=== PATIENT | female | born 1995 | race Caucasian/White ===

== ENCOUNTER 2016-10-11 11:07 | Emergency (ER) | payer OTHER ==
[~2016-10-11] VITALS: Ht 160 cm; Wt 54.4 kg
[~2016-10-11 11:07] MED LIST: BACTRIM DS 8001 TA1 PO; CEPHALEXIN500 M1 PO; COLACE1 SUP RC; CYCLOBENZAPRINE10 MG PO; FLAGYL500 MG PO; IMITREX100 MG PO; KENALOG 0.1%80 GM T; MACROBID100 M1 PO; MYCOLOG CREAM 115 GM T; NAPROSYN500 MG PO; NKHM PO; PEPCID20 MG PO; PYRIDIUM200 M1 PO; TESSALON PERLE200 MG PO; ZANTAC 150150 MG PO; ZITHROMAX Z PA250 MG PO; ZOFRAN ODT4 MG SL; ZOFRAN4 MG PO; Zofran4 MG PO
[2016-10-11 11:13] VITALS: BP 116/67
[2016-10-11 11:29] LABS: BASO % 0.3 % (0.0-1.0); EOS # 0.1 10*3/uL (0.0-0.4); HEMATOCRIT 40.5 % (37.0-47.0); HEMOGLOBIN 13.8 g/dl (12.0-16.0); LYMPH # 1.8 10*3/uL (1.3-4.4); LYMPH % 27.8 % (27.0-41.0); MEAN CELL VOLUME 88.2 fl (81.0-99.0); MEAN CORPUSCULAR HGB 30.1 pg (27.0-31.0); MEAN CORPUSCULAR HGB CONC 34.1 g/dl (33.0-37.0); MEAN PLATELET VOLUME 9.4 fl (9.6-12.3); MONO # 0.5 10*3/uL (0.1-1.0); MONO % 7.8 % (3.0-9.0); NEUT % 62.9 % (47.0-73.0); PLATELET COUNT AUTOMATED 221 10*3/uL (130-400); RED BLOOD COUNT 4.59 10*6/uL (4.10-5.10); RED CELL DISTRI WIDTH 11.9 % (0-14.5); WHITE BLOOD COUNT 6.3 10*3/uL (4.8-10.8)
[2016-10-11 11:39] LABS: BILIRUBIN 1+ (NEGATIVE); BLOOD 3+ (NEGATIVE); CLARITY SL CLOUDY (CLEAR); COLOR YELLOW (YELLOW); GLUCOSE NEGATIVE (NEGATIVE); KETONE 1+ (NEGATIVE); LEUKO ESTERASE NEGATIVE (NEGATIVE); NITRITE NEGATIVE (NEGATIVE); SPECIFIC GRAVITY 1.025 (1.005-1.030)
[2016-10-11 11:45] LABS: ALKALINE PHOSPHATASE 83 U/L (45-117); BUN 9 mg/dl (7-24); CHLORIDE 106 mmol/L (98-107); CREATININE 0.79 mg/dL (0.55-1.02); POTASSIUM 3.6 mmol/L (3.5-5.1); SGOT/AST 16 IU/L (3-35); SGPT/ALT 17 U/L (12-78); SODIUM 142 mmol/L (136-145); TOTAL PROTEIN 7.3 gm/dL (6.4-8.2)
[2016-10-11 11:53] LABS: BACTERIA 2+; EPITHELIAL CELLS 15-20; RBC 21-30 rbc/hpf (0-2)
== END 2016-10-11 12:16 | disposition home or self-care (01) ==
LOC: ED 11:07
PROVIDERS: Nurse Practitioner Family
DX: N93.8 Other specified abnormal uterine and vaginal bleeding (principal); G43.909 Migraine, unspecified, not intractable, without status migrainosus; F17.200 Nicotine dependence, unspecified, uncomplicated

== ENCOUNTER 2016-11-21 19:43 | Emergency (ER) | payer OTHER ==
[~2016-11-21] VITALS: Ht 167.6 cm; Wt 68.0 kg
[2016-11-21 19:48] VITALS: BP 105/58
[2016-11-21] MEDS ORDERED: ZITHROMAX250 MG PO (21:18)
[2016-11-21] MEDS ORDERED: ZYRTEC10 MG PO (21:18)
== END 2016-11-21 21:22 | disposition home or self-care (01) ==
LOC: ED 19:43
DX: J20.9 Acute bronchitis, unspecified (principal); J01.90 Acute sinusitis, unspecified; F17.210 Nicotine dependence, cigarettes, uncomplicated

== ENCOUNTER 2016-12-14 12:23 | Emergency (ER) | payer OTHER ==
[~2016-12-14] VITALS: Ht 160 cm; Wt 67.6 kg
[~2016-12-14 12:23] MED LIST changes: +ZITHROMAX250 MG PO; +ZYRTEC10 MG PO
[2016-12-14 12:27] VITALS: BP 108/60
[2016-12-14 12:58] LABS: BASO % 0.3 % (0.0-1.0); EOS # 0.1 10*3/uL (0.0-0.4); EOS % 0.4 % (1.0-4.0); HEMOGLOBIN 13.6 g/dl (12.0-16.0); LYMPH # 1.5 10*3/uL (1.3-4.4); MEAN CELL VOLUME 86.8 fl (81.0-99.0); MEAN CORPUSCULAR HGB 29.5 pg (27.0-31.0); MEAN PLATELET VOLUME 9.8 fl (9.6-12.3); MONO # 0.4 10*3/uL (0.1-1.0); MONO % 3.8 % (3.0-9.0); NEUT # 9.4 10*3/uL (2.3-7.9); NEUT % 82.2 % (47.0-73.0); PLATELET COUNT AUTOMATED 244 10*3/uL (130-400); RED BLOOD COUNT 4.61 10*6/uL (4.10-5.10); RED CELL DISTRI WIDTH 12.3 % (0-14.5); WHITE BLOOD COUNT 11.5 10*3/uL (4.8-10.8)
[2016-12-14 12:59] LABS: BILIRUBIN NEGATIVE (NEGATIVE); BLOOD NEGATIVE (NEGATIVE); CLARITY CLEAR (CLEAR); COLOR YELLOW (YELLOW); GLUCOSE NEGATIVE (NEGATIVE); KETONE NEGATIVE (NEGATIVE); LEUKO ESTERASE NEGATIVE (NEGATIVE); NITRITE NEGATIVE (NEGATIVE); PH 7.5 (5.0-9.0); SPECIFIC GRAVITY 1.015 (1.005-1.030); UROBILINOGEN 0.2 E.U./dl (0.2-1.0)
[2016-12-14 13:07] LABS: BACTERIA TRACE
[2016-12-14 13:14] LABS: ALBUMIN 3.9 gm/dl (3.1-4.5); ALKALINE PHOSPHATASE 85 U/L (45-117); BUN 8 mg/dl (7-24); CHLORIDE 106 mmol/L (98-107); CREATININE 0.79 mg/dL (0.55-1.02); LIPASE 220 U/L (73-393); POTASSIUM 3.5 mmol/L (3.5-5.1); SGOT/AST 23 IU/L (3-35); SGPT/ALT 27 U/L (12-78); SODIUM 141 mmol/L (136-145)
[2016-12-14 13:20] LABS: BETA-HCG, QUANT < 1.0 mIU/mL (1-3)
[2016-12-14] MEDS ORDERED: ZOFRAN ODT4 MG SL (15:21)
== END 2016-12-14 15:27 | disposition home or self-care (01) ==
LOC: ED 12:23
PROVIDERS: Emergency Medicine
DX: R11.2 Nausea with vomiting, unspecified (principal); F17.200 Nicotine dependence, unspecified, uncomplicated

== ENCOUNTER 2017-02-14 14:06 | Emergency (ER) | payer OTHER ==
[~2017-02-14] VITALS: Ht 160 cm; Wt 63.5 kg
[2017-02-14 14:14] VITALS: BP 114/68
[2017-02-14] MEDS ORDERED: CLARITIN10 MG PO (14:31)
[2017-02-14] MEDS ORDERED: PREDNISONE10 MG PO (14:31)
[2017-02-14] MEDS ORDERED: FLONASE ALLERG9.9 ML NAS (14:31)
[2017-02-14] MEDS ORDERED: ROBITUSSIN DM 105 ML PO (14:31)
== END 2017-02-14 15:04 | disposition home or self-care (01) ==
LOC: ED 14:06
DX: J20.9 Acute bronchitis, unspecified (principal); G43.909 Migraine, unspecified, not intractable, without status migrainosus; F17.200 Nicotine dependence, unspecified, uncomplicated

== ENCOUNTER 2017-02-18 12:45 | Emergency (ER) | payer OTHER ==
[~2017-02-18] VITALS: Wt 63.5 kg
[~2017-02-18 12:45] MED LIST changes: +CLARITIN10 MG PO; +FLONASE ALLERG9.9 ML NAS; +PREDNISONE10 MG PO; +ROBITUSSIN DM 105 ML PO
[2017-02-18 13:00] VITALS: BP 117/83
[2017-02-18 13:28] LABS: BASO % 0.3 % (0.0-1.0); EOS % 0.2 % (1.0-4.0); HEMATOCRIT 42.9 % (37.0-47.0); HEMOGLOBIN 14.3 g/dl (12.0-16.0); LYMPH # 2.4 10*3/uL (1.3-4.4); MEAN CELL VOLUME 87.9 fl (81.0-99.0); MEAN CORPUSCULAR HGB 29.3 pg (27.0-31.0); MEAN CORPUSCULAR HGB CONC 33.3 g/dl (33.0-37.0); MEAN PLATELET VOLUME 9.3 fl (9.6-12.3); MONO # 0.6 10*3/uL (0.1-1.0); MONO % 5.8 % (3.0-9.0); NEUT # 7.4 10*3/uL (2.3-7.9); NEUT % 70.4 % (47.0-73.0); PLATELET COUNT AUTOMATED 266 10*3/uL (130-400); RED BLOOD COUNT 4.88 10*6/uL (4.10-5.10); RED CELL DISTRI WIDTH 12.7 % (0-14.5); WHITE BLOOD COUNT 10.4 10*3/uL (4.8-10.8)
[2017-02-18 13:44] LABS: ALBUMIN 4.2 gm/dl (3.1-4.5); ALKALINE PHOSPHATASE 85 U/L (45-117); BUN 11 mg/dl (7-24); CHLORIDE 109 mmol/L (98-107); CREATININE 0.86 mg/dL (0.55-1.02); POTASSIUM 3.4 mmol/L (3.5-5.1); SGOT/AST 13 IU/L (3-35); SGPT/ALT 23 U/L (12-78); SODIUM 147 mmol/L (136-145); TOTAL PROTEIN 7.8 gm/dL (6.4-8.2)
== END 2017-02-18 14:52 | disposition home or self-care (01) ==
LOC: ED 12:45
PROVIDERS: Emergency Medicine
DX: G43.909 Migraine, unspecified, not intractable, without status migrainosus (principal); E87.6 Hypokalemia; E87.0 Hyperosmolality and hypernatremia; F17.200 Nicotine dependence, unspecified, uncomplicated; Z79.899 Other long term (current) drug therapy

== ENCOUNTER 2017-05-16 14:20 | Emergency (ER) | payer OTHER ==
[~2017-05-16] VITALS: Ht 167.6 cm; Wt 65.8 kg
[2017-05-16 14:23] VITALS: BP 111/58
[2017-05-16] MEDS ORDERED: CEPHALEXIN500 M1 PO (14:48)
[2017-05-16] MEDS ORDERED: CILOXAN 5 ML5 M1 OS (14:48)
== END 2017-05-16 15:15 | disposition home or self-care (01) ==
LOC: ED 14:20
DX: H10.502 Unspecified blepharoconjunctivitis, left eye (principal); L08.89 Other specified local infections of the skin and subcutaneous tissue; G43.909 Migraine, unspecified, not intractable, without status migrainosus

== ENCOUNTER 2017-07-15 12:59 | Emergency (ER) | payer OTHER ==
[~2017-07-15] VITALS: Ht 160 cm; Wt 63.5 kg
[2017-07-15 12:59] VITALS: BP 133/77
[~2017-07-15 12:59] MED LIST changes: +CILOXAN 5 ML5 M1 OS
[2017-07-15 13:30] LABS: BILIRUBIN NEGATIVE (NEGATIVE); BLOOD NEGATIVE (NEGATIVE); CLARITY CLOUDY (CLEAR); COLOR YELLOW (YELLOW); GLUCOSE NEGATIVE (NEGATIVE); KETONE NEGATIVE (NEGATIVE); LEUKO ESTERASE NEGATIVE (NEGATIVE); NITRITE NEGATIVE (NEGATIVE); PH 8.5 (5.0-9.0); SPECIFIC GRAVITY 1.015 (1.005-1.030); UROBILINOGEN 0.2 E.U./dl (0.2-1.0)
[2017-07-15 13:41] LABS: BACTERIA 2+; EPITHELIAL CELLS 30-40
[2017-07-15 13:53] LABS: BASO # 0.1 10*3/uL (0.0-0.1); BASO % 0.4 % (0.0-1.0); EOS # 0.1 10*3/uL (0.0-0.4); EOS % 0.3 % (1.0-4.0); HEMATOCRIT 44.1 % (37.0-47.0); HEMOGLOBIN 14.7 g/dl (12.0-16.0); LYMPH # 1.4 10*3/uL (1.3-4.4); LYMPH % 9.8 % (27.0-41.0); MEAN CELL VOLUME 89.5 fl (81.0-99.0); MEAN CORPUSCULAR HGB 29.8 pg (27.0-31.0); MEAN CORPUSCULAR HGB CONC 33.3 g/dl (33.0-37.0); MEAN PLATELET VOLUME 10.3 fl (9.6-12.3); MONO # 0.6 10*3/uL (0.1-1.0); MONO % 3.8 % (3.0-9.0); NEUT # 12.5 10*3/uL (2.3-7.9); NEUT % 85.4 % (47.0-73.0); PLATELET COUNT AUTOMATED 213 10*3/uL (130-400); RED BLOOD COUNT 4.93 10*6/uL (4.10-5.10); WHITE BLOOD COUNT 14.7 10*3/uL (4.8-10.8)
[2017-07-15 14:08] LABS: ALKALINE PHOSPHATASE 93 U/L (45-117); BUN 5 mg/dl (7-24); CHLORIDE 111 mmol/L (98-107); CREATININE 0.84 mg/dL (0.55-1.02); LIPASE 246 U/L (73-393); SGOT/AST 22 IU/L (3-35); SGPT/ALT 22 U/L (12-78); SODIUM 143 mmol/L (136-145); TOTAL PROTEIN 7.7 gm/dL (6.4-8.2)
[2017-07-15] MEDS ORDERED: ANAPROX DS550 MG PO (15:07)
[2017-07-15] MEDS ORDERED: ZOFRAN ODT4 MG SL (15:07)
== END 2017-07-15 15:12 | disposition home or self-care (01) ==
LOC: ED 12:59
PROVIDERS: Physician Assistant
DX: N83.201 Unspecified ovarian cyst, right side (principal); R11.2 Nausea with vomiting, unspecified; R19.7 Diarrhea, unspecified

== ENCOUNTER 2017-10-18 10:57 | Emergency (ER) | payer OTHER ==
[~2017-10-18] VITALS: Ht 160 cm; Wt 63.5 kg
[~2017-10-18 10:57] MED LIST changes: +ANAPROX DS550 MG PO; +Motrin,Rufen800 MG PO
[2017-10-18 10:58] VITALS: BP 116/83
[2017-10-18 11:23] LABS: BASO % 0.3 % (0.0-1.0); EOS % 0.2 % (1.0-4.0); HEMATOCRIT 40.6 % (37.0-47.0); HEMOGLOBIN 13.6 g/dl (12.0-16.0); LYMPH # 1.4 10*3/uL (1.3-4.4); LYMPH % 12.1 % (27.0-41.0); MEAN CELL VOLUME 88.3 fl (81.0-99.0); MEAN CORPUSCULAR HGB 29.6 pg (27.0-31.0); MEAN CORPUSCULAR HGB CONC 33.5 g/dl (33.0-37.0); MONO # 0.8 10*3/uL (0.1-1.0); MONO % 6.8 % (3.0-9.0); NEUT # 9.4 10*3/uL (2.3-7.9); NEUT % 80.2 % (47.0-73.0); PLATELET COUNT AUTOMATED 259 10*3/uL (130-400); RED CELL DISTRI WIDTH 12.2 % (0-14.5); WHITE BLOOD COUNT 11.7 10*3/uL (4.8-10.8)
[2017-10-18 11:39] LABS: ALBUMIN 3.7 gm/dl (3.1-4.5); ALKALINE PHOSPHATASE 73 U/L (45-117); BUN 8 mg/dl (7-24); CHLORIDE 111 mmol/L (98-107); CREATININE 0.77 mg/dL (0.55-1.02); LIPASE 125 U/L (73-393); POTASSIUM 3.6 mmol/L (3.5-5.1); SGOT/AST 17 IU/L (3-35); SGPT/ALT 36 U/L (12-78); SODIUM 144 mmol/L (136-145); TOTAL PROTEIN 7.2 gm/dL (6.4-8.2)
[2017-10-18 11:45] LABS: BILIRUBIN NEGATIVE (NEGATIVE); BLOOD 2+ (NEGATIVE); CLARITY SL CLOUDY (CLEAR); COLOR YELLOW (YELLOW); GLUCOSE NEGATIVE (NEGATIVE); KETONE NEGATIVE (NEGATIVE); LEUKO ESTERASE NEGATIVE (NEGATIVE); NITRITE NEGATIVE (NEGATIVE)
[2017-10-18 11:55] LABS: URINE AMPHETAMINES < 1000 (1000ng/ml); URINE BARBITURATES < 200 (200ng/ml); URINE BENZODIAZEPINES < 200 (200ng/ml); URINE CANNABINOIDS (THC) > 50 (50ng/ml); URINE COCAINE < 300 (300ng/ml); URINE METHADONE < 300 (300ng/ml); URINE OPIATES < 300 (300ng/ml)
[2017-10-18 11:57] LABS: URINE PHENCYCLIDINE < 25 (25ng/ml)
[2017-10-18 12:00] LABS: BACTERIA 1+; EPITHELIAL CELLS 31-40; MUCOUS 2+
== END 2017-10-18 13:15 | disposition home or self-care (01) ==
LOC: ED 10:57
PROVIDERS: Physician Assistant
DX: R11.2 Nausea with vomiting, unspecified (principal)

== ENCOUNTER 2017-11-07 21:22 | Emergency (ER) | payer OTHER ==
[~2017-11-07] VITALS: Ht 160 cm; Wt 59.0 kg
[2017-11-07 21:23] VITALS: BP 114/65
[2017-11-07] MEDS ORDERED: AUGMENTIN 875-875 MG PO (21:40)
== END 2017-11-07 21:51 ==
LOC: ED 21:22
DX: J32.0 Chronic maxillary sinusitis (principal); G43.909 Migraine, unspecified, not intractable, without status migrainosus; F17.200 Nicotine dependence, unspecified, uncomplicated

== ENCOUNTER 2019-12-07 13:37 | Emergency (ER) | payer SELFPAY ==
[~2019-12-07] VITALS: Ht 160 cm; Wt 68.0 kg
[~2019-12-07 13:37] MED LIST changes: +AUGMENTIN 875-875 MG PO
[2019-12-07 13:44] VITALS: BP 115/68
[2019-12-07 14:49] LABS: BASO # 0.1 10*3/uL (0.0-0.1); BASO % 0.4 % (0.0-1.0); HEMATOCRIT 43.4 % (37.0-47.0); LYMPH # 1.1 10*3/uL (1.3-4.4); LYMPH % 8.3 % (27.0-41.0); MEAN CELL VOLUME 86.6 fl (81.0-99.0); MEAN CORPUSCULAR HGB 28.9 pg (27.0-31.0); MEAN CORPUSCULAR HGB CONC 33.4 g/dl (33.0-37.0); MONO # 0.5 10*3/uL (0.1-1.0); MONO % 3.5 % (3.0-9.0); NEUT # 11.8 10*3/uL (2.3-7.9); NEUT % 87.6 % (47.0-73.0); PLATELET COUNT AUTOMATED 261 10*3/uL (130-400); RED BLOOD COUNT 5.01 10*6/uL (4.10-5.10); RED CELL DISTRI WIDTH 11.9 % (0-14.5); WHITE BLOOD COUNT 13.5 10*3/uL (4.8-10.8)
[2019-12-07 15:01] LABS: BILIRUBIN Negative (Negative); BLOOD Negative (Negative); CLARITY Clear (Clear); COLOR Yellow (Yellow); GLUCOSE Negative (Negative); KETONE 1+ (Negative); LEUKO ESTERASE Negative (Negative); NITRITE Negative (Negative); PH 6.5 (4.5-8.0); SPECIFIC GRAVITY 1.025 (1.001-1.030)
[2019-12-07 15:04] LABS: ALBUMIN 4.1 gm/dl (3.1-4.5); ALKALINE PHOSPHATASE 88 U/L (45-117); BUN 9 mg/dl (7-24); CHLORIDE 110 mmol/L (98-107); CREATININE 0.77 mg/dL (0.55-1.02); LIPASE 78 U/L (73-393); POTASSIUM 3.6 mmol/L (3.5-5.1); SGOT/AST 14 IU/L (3-35); SGPT/ALT 28 U/L (12-78); SODIUM 143 mmol/L (136-145); TOTAL PROTEIN 7.5 gm/dL (6.4-8.2)
[2019-12-07 15:12] LABS: BACTERIA 1+; EPITHELIAL CELLS 0-2; WBC 0-2 wbc/hpf (0-5)
[2019-12-07 15:13] LABS: MUCOUS 1+
[2019-12-07] MEDS ORDERED: SEPTDS PO (16:09)
[2019-12-07] MEDS ORDERED: ZOFRAN4 MG PO (16:09)
[2019-12-07] MEDS ORDERED: PYRIDIUM200 M1 PO (16:09)
== END 2019-12-07 16:16 | disposition home or self-care (01) ==
LOC: ED 13:37
PROVIDERS: Physician Assistant
DX: R11.2 Nausea with vomiting, unspecified (principal); R30.0 Dysuria; Z79.899 Other long term (current) drug therapy

== ENCOUNTER 2020-01-21 11:48 | Emergency (ER) | payer SELFPAY ==
[~2020-01-21] VITALS: Ht 160 cm; Wt 65.8 kg
[~2020-01-21 11:48] MED LIST changes: +SEPTDS PO
[2020-01-21 11:59] VITALS: BP 110/63
[2020-01-21 12:23] LABS: BASO % 0.3 % (0.0-1.0); EOS % 0.2 % (1.0-4.0); HEMATOCRIT 43.5 % (37.0-47.0); LYMPH # 1.6 10*3/uL (1.3-4.4); LYMPH % 11.8 % (27.0-41.0); MEAN CELL VOLUME 86.5 fl (81.0-99.0); MEAN CORPUSCULAR HGB 28.2 pg (27.0-31.0); MEAN CORPUSCULAR HGB CONC 32.6 g/dl (33.0-37.0); MEAN PLATELET VOLUME 9.7 fl (9.6-12.3); MONO # 0.8 10*3/uL (0.1-1.0); NEUT % 81.4 % (47.0-73.0); PLATELET COUNT AUTOMATED 273 10*3/uL (130-400); RED BLOOD COUNT 5.03 10*6/uL (4.10-5.10); RED CELL DISTRI WIDTH 12.4 % (0-14.5); WHITE BLOOD COUNT 13.5 10*3/uL (4.8-10.8)
[2020-01-21 12:38] LABS: ALKALINE PHOSPHATASE 85 U/L (45-117); BUN 7 mg/dl (7-24); CHLORIDE 111 mmol/L (98-107); CREATININE 0.78 mg/dL (0.55-1.02); LIPASE 68 U/L (73-393); POTASSIUM 3.3 mmol/L (3.5-5.1); SGOT/AST 18 IU/L (3-35); SGPT/ALT 31 U/L (12-78); SODIUM 145 mmol/L (136-145); TOTAL PROTEIN 7.4 gm/dL (6.4-8.2)
[2020-01-21 15:12] LABS: BILIRUBIN Negative (Negative); BLOOD Negative (Negative); CLARITY Clear (Clear); COLOR Yellow (Yellow); GLUCOSE Negative (Negative); KETONE Trace (Negative); LEUKO ESTERASE Negative (Negative); NITRITE Negative (Negative); UROBILINOGEN 0.2 E.U./dl (0.0-1.0)
[2020-01-21 15:21] LABS: PH 8.5 (4.5-8.0)
[2020-01-21 15:27] LABS: BACTERIA 2+; EPITHELIAL CELLS 31-40; RBC 0-2 rbc/hpf (0-2); WBC 0-2 wbc/hpf (0-5)
[2020-01-21] MEDS ORDERED: ZOFRAN4 MG PO (16:03)
== END 2020-01-21 16:40 | disposition home or self-care (01) ==
LOC: ED 11:48
PROVIDERS: Physician Assistant
DX: R11.2 Nausea with vomiting, unspecified (principal); E86.0 Dehydration; F41.9 Anxiety disorder, unspecified; Z20.828 Contact with and (suspected) exposure to other viral communicable diseases; Z79.899 Other long term (current) drug therapy; Z79.2 Long term (current) use of antibiotics

== ENCOUNTER 2020-02-17 10:59 | Emergency (ER) | payer SELFPAY ==
[~2020-02-17] VITALS: Ht 160 cm; Wt 68.0 kg
[2020-02-17 12:06] LABS: HEMATOCRIT 44.4 % (37.0-47.0); MEAN CELL VOLUME 87.9 fl (81.0-99.0); MEAN CORPUSCULAR HGB 29.1 pg (27.0-31.0); MEAN CORPUSCULAR HGB CONC 33.1 g/dl (33.0-37.0); MEAN PLATELET VOLUME 9.9 fl (9.6-12.3); PLATELET COUNT AUTOMATED 310 10*3/uL (130-400); RED BLOOD COUNT 5.05 10*6/uL (4.10-5.10); RED CELL DISTRI WIDTH 12.7 % (0-14.5); WHITE BLOOD COUNT 28.3 10*3/uL (4.8-10.8)
[2020-02-17 12:24] LABS: ALBUMIN 4.2 gm/dl (3.1-4.5); ALKALINE PHOSPHATASE 82 U/L (45-117); BUN 13 mg/dl (7-24); CHLORIDE 110 mmol/L (98-107); CREATININE 0.81 mg/dL (0.55-1.02); LIPASE 48 U/L (73-393); POTASSIUM 3.2 mmol/L (3.5-5.1); SGOT/AST 22 IU/L (3-35); SGPT/ALT 30 U/L (12-78); SODIUM 143 mmol/L (136-145); TOTAL PROTEIN 7.6 gm/dL (6.4-8.2)
[2020-02-17 12:42] LABS: PLATELET SUFFICIENCY NORMAL (NORMAL); TOTAL CELLS COUNTED 100 #CELLS
[2020-02-17 15:05] LABS: HEMATOCRIT 42.3 % (37.0-47.0); MEAN CELL VOLUME 88.7 fl (81.0-99.0); MEAN CORPUSCULAR HGB 28.5 pg (27.0-31.0); MEAN CORPUSCULAR HGB CONC 32.2 g/dl (33.0-37.0); MEAN PLATELET VOLUME 9.6 fl (9.6-12.3); PLATELET COUNT AUTOMATED 235 10*3/uL (130-400); RED BLOOD COUNT 4.77 10*6/uL (4.10-5.10); RED CELL DISTRI WIDTH 12.3 % (0-14.5); WHITE BLOOD COUNT 21.2 10*3/uL (4.8-10.8)
[2020-02-17 15:06] LABS: BILIRUBIN Negative (Negative); BLOOD Negative (Negative); CLARITY Clear (Clear); COLOR Yellow (Yellow); GLUCOSE Negative (Negative); KETONE 2+ (Negative); LEUKO ESTERASE Negative (Negative); NITRITE Negative (Negative); UROBILINOGEN 0.2 E.U./dl (0.0-1.0)
[2020-02-17 15:15] LABS: BACTERIA 2+; RBC 0-2 rbc/hpf (0-2)
[2020-02-17 15:22] LABS: TOTAL CELLS COUNTED 100 #CELLS
[2020-02-17 15:23] LABS: PLATELET SUFFICIENCY NORMAL (NORMAL)
[2020-02-17 15:24] VITALS: BP 95/56
[2020-02-17] MEDS ORDERED: ZOFRAN4 MG PO (15:30)
== END 2020-02-17 19:33 | disposition home or self-care (01) ==
LOC: ED 10:59
PROVIDERS: Nurse Practitioner Family
DX: R11.2 Nausea with vomiting, unspecified (principal); Z79.899 Other long term (current) drug therapy

== ENCOUNTER 2020-04-21 10:57 | Emergency (ER) | payer SELFPAY ==
[~2020-04-21] VITALS: Wt 63.5 kg
[2020-04-21 11:05] VITALS: BP 111/61
[2020-04-21 11:21] LABS: BILIRUBIN Negative (Negative); BLOOD Trace-Intact (Negative); CLARITY Clear (Clear); COLOR Yellow (Yellow); GLUCOSE Negative (Negative); KETONE Negative (Negative); LEUKO ESTERASE Negative (Negative); NITRITE Negative (Negative); PH 6.5 (4.5-8.0); SPECIFIC GRAVITY 1.015 (1.001-1.030); UROBILINOGEN 0.2 E.U./dl (0.0-1.0)
[2020-04-21 11:27] LABS: BASO # 0.1 10*3/uL (0.0-0.1); BASO % 0.2 % (0.0-1.0); HEMATOCRIT 43.7 % (37.0-47.0); LYMPH # 1.9 10*3/uL (1.3-4.4); LYMPH % 9.2 % (27.0-41.0); MEAN CELL VOLUME 87.1 fl (81.0-99.0); MEAN CORPUSCULAR HGB 29.7 pg (27.0-31.0); MEAN CORPUSCULAR HGB CONC 34.1 g/dl (33.0-37.0); MEAN PLATELET VOLUME 9.9 fl (9.6-12.3); MONO # 0.7 10*3/uL (0.1-1.0); MONO % 3.5 % (3.0-9.0); NEUT # 17.7 10*3/uL (2.3-7.9); NEUT % 86.7 % (47.0-73.0); PLATELET COUNT AUTOMATED 311 10*3/uL (130-400); RED BLOOD COUNT 5.02 10*6/uL (4.10-5.10); WHITE BLOOD COUNT 20.4 10*3/uL (4.8-10.8)
[2020-04-21 11:30] LABS: BACTERIA 3+; MUCOUS 2+
[2020-04-21 11:43] LABS: URINE AMPHETAMINES < 1000 (1000ng/ml); URINE BARBITURATES < 200 (200ng/ml); URINE BENZODIAZEPINES < 200 (200ng/ml); URINE CANNABINOIDS (THC) > 50 (50ng/ml); URINE COCAINE < 300 (300ng/ml); URINE METHADONE < 300 (300ng/ml); URINE OPIATES < 300 (300ng/ml); URINE PHENCYCLIDINE < 25 (25ng/ml)
[2020-04-21 11:47] LABS: ALBUMIN 4.1 gm/dl (3.1-4.5); ALKALINE PHOSPHATASE 92 U/L (45-117); BUN 7 mg/dl (7-24); CHLORIDE 111 mmol/L (98-107); CREATININE 0.78 mg/dL (0.55-1.02); LIPASE 63 U/L (73-393); POTASSIUM 3.7 mmol/L (3.5-5.1); SGOT/AST 15 IU/L (3-35); SGPT/ALT 23 U/L (12-78); SODIUM 145 mmol/L (136-145); TOTAL PROTEIN 7.6 gm/dL (6.4-8.2)
[2020-04-21] MEDS ORDERED: ZOFRAN4 MG PO (15:12)
== END 2020-04-21 14:47 | disposition home or self-care (01) ==
LOC: ED 10:57
PROVIDERS: Emergency Medicine
DX: R11.2 Nausea with vomiting, unspecified (principal); F12.10 Cannabis abuse, uncomplicated; G43.909 Migraine, unspecified, not intractable, without status migrainosus; F41.9 Anxiety disorder, unspecified; Z79.899 Other long term (current) drug therapy

== ENCOUNTER 2020-06-26 18:14 | Emergency (ER) | payer SELFPAY ==
[~2020-06-26] VITALS: Ht 160 cm; Wt 59.0 kg
[2020-06-26 19:47] LABS: BASO % 0.2 % (0.0-1.0); EOS # 0.1 10*3/uL (0.0-0.4); EOS % 0.4 % (1.0-4.0); HEMATOCRIT 42.6 % (37.0-47.0); LYMPH # 0.8 10*3/uL (1.3-4.4); LYMPH % 5.6 % (27.0-41.0); MEAN CELL VOLUME 85.7 fl (81.0-99.0); MEAN CORPUSCULAR HGB 28.8 pg (27.0-31.0); MEAN CORPUSCULAR HGB CONC 33.6 g/dl (33.0-37.0); MEAN PLATELET VOLUME 9.8 fl (9.6-12.3); MONO # 0.8 10*3/uL (0.1-1.0); MONO % 5.9 % (3.0-9.0); NEUT # 12.2 10*3/uL (2.3-7.9); NEUT % 87.6 % (47.0-73.0); PLATELET COUNT AUTOMATED 309 10*3/uL (130-400); RED BLOOD COUNT 4.97 10*6/uL (4.10-5.10); RED CELL DISTRI WIDTH 12.3 % (0-14.5)
[2020-06-26 20:03] LABS: ALBUMIN 4.1 gm/dl (3.1-4.5); ALKALINE PHOSPHATASE 81 U/L (45-117); BUN 14 mg/dl (7-24); CHLORIDE 107 mmol/L (98-107); CREATININE 0.85 mg/dL (0.55-1.02); SGOT/AST 24 IU/L (3-35); SGPT/ALT 30 U/L (12-78); SODIUM 141 mmol/L (136-145); TOTAL PROTEIN 7.5 gm/dL (6.4-8.2)
[2020-06-26 20:06] LABS: BETA-HCG, QUANT < 1.0 mIU/mL (1-3)
[2020-06-26] MEDS ORDERED: PHENERGAN25 M3 PO (21:04)
[2020-06-26] MEDS ORDERED: ZOFRAN4 MG PO (21:04)
== END 2020-06-26 21:11 | disposition home or self-care (01) ==
LOC: ED 18:14
PROVIDERS: Student in an Organized Health Care Education/Training Program
DX: K52.9 Noninfective gastroenteritis and colitis, unspecified (principal); Z79.899 Other long term (current) drug therapy

== ENCOUNTER 2020-11-18 02:14 | Emergency (ER) | payer SELFPAY ==
[~2020-11-18] VITALS: Ht 160 cm; Wt 63.5 kg
[~2020-11-18 02:14] MED LIST changes: +PHENERGAN25 M3 PO
[2020-11-18 02:31] VITALS: BP 114/72
[2020-11-18 02:52] LABS: BASO % 0.3 % (0.0-1.0); EOS % 0.2 % (1.0-4.0); HEMATOCRIT 38.9 % (37.0-47.0); LYMPH # 1.6 10*3/uL (1.3-4.4); LYMPH % 14.6 % (27.0-41.0); MEAN CELL VOLUME 88.6 fl (81.0-99.0); MEAN CORPUSCULAR HGB 29.6 pg (27.0-31.0); MEAN CORPUSCULAR HGB CONC 33.4 g/dl (33.0-37.0); MEAN PLATELET VOLUME 9.6 fl (9.6-12.3); MONO # 0.8 10*3/uL (0.1-1.0); MONO % 7.2 % (3.0-9.0); NEUT # 8.3 10*3/uL (2.3-7.9); NEUT % 77.3 % (47.0-73.0); PLATELET COUNT AUTOMATED 242 10*3/uL (130-400); RED BLOOD COUNT 4.39 10*6/uL (4.10-5.10); RED CELL DISTRI WIDTH 11.7 % (0-14.5); WHITE BLOOD COUNT 10.8 10*3/uL (4.8-10.8)
[2020-11-18 03:06] LABS: ALBUMIN 3.4 gm/dl (3.1-4.5); ALKALINE PHOSPHATASE 56 U/L (45-117); BUN 11 mg/dl (7-24); CHLORIDE 106 mmol/L (98-107); CREATININE 0.65 mg/dL (0.55-1.02); POTASSIUM 3.7 mmol/L (3.5-5.1); SGOT/AST 10 IU/L (3-35); SGPT/ALT 24 U/L (12-78); SODIUM 138 mmol/L (136-145); TOTAL PROTEIN 6.4 gm/dL (6.4-8.2)
== END 2020-11-18 03:29 | disposition home or self-care (01) ==
LOC: ED 02:14
PROVIDERS: Internal Medicine
DX: O26.891 Other specified pregnancy related conditions, first trimester (principal); Z3A.08 8 weeks gestation of pregnancy; R42 Dizziness and giddiness

== ENCOUNTER 2020-11-19 22:55 | Emergency (ER) | payer MEDICAID ==
[~2020-11-19] VITALS: Ht 160 cm; Wt 63.5 kg
[2020-11-19 23:25] VITALS: BP 113/63
== END 2020-11-20 06:49 | disposition left against medical advice (07) ==
LOC: ED 22:55
DX: O26.891 Other specified pregnancy related conditions, first trimester (principal); G43.909 Migraine, unspecified, not intractable, without status migrainosus; Z53.21 Procedure and treatment not carried out due to patient leaving prior to being seen by health care provider

== ENCOUNTER 2021-01-05 09:31 | Emergency (ER) | payer MEDICAID ==
[~2021-01-05] VITALS: Wt 63.5 kg
[2021-01-05 09:55] VITALS: BP 105/63
[2021-01-05 10:30] LABS: BILIRUBIN Negative (Negative); BLOOD Negative (Negative); CLARITY Clear (Clear); COLOR Yellow (Yellow); GLUCOSE Negative (Negative); KETONE Negative (Negative); LEUKO ESTERASE Negative (Negative); NITRITE Negative (Negative); PH 6.5 (4.5-8.0); SPECIFIC GRAVITY 1.015 (1.001-1.030); UROBILINOGEN 0.2 E.U./dl (0.0-1.0)
[2021-01-05 10:47] LABS: BACTERIA 2+
[2021-01-05] MEDS ORDERED: CEPHALEXIN500 M1 PO (10:56)
== END 2021-01-05 11:52 | disposition home or self-care (01) ==
LOC: ED 09:31
PROVIDERS: Student in an Organized Health Care Education/Training Program
DX: R05.9 Cough, unspecified (principal); Z20.822 Contact with and (suspected) exposure to COVID-19; J02.9 Acute pharyngitis, unspecified

== ENCOUNTER 2022-03-08 02:16 | Emergency (ER) | payer OTHER ==
[~2022-03-08] VITALS: Ht 160 cm; Wt 80.3 kg
[2022-03-08 02:16] VITALS: BP 128/80
[2022-03-08] MEDS ORDERED: Ondansetron4 MG PO (02:57)
== END 2022-03-08 05:03 | disposition home or self-care (01) ==
LOC: ED 02:16
DX: G43.009 Migraine without aura, not intractable, without status migrainosus (principal)

== ENCOUNTER 2022-11-24 13:42 | Emergency (ER) | payer OTHER ==
[~2022-11-24] VITALS: Ht 160 cm; Wt 70.3 kg
[~2022-11-24 13:42] MED LIST changes: +Ondansetron4 MG PO
[2022-11-24 13:50] VITALS: BP 132/72
[2022-11-24] MEDS ORDERED: AVPAK AZITHROM250 M1 PO (14:07)
== END 2022-11-24 14:42 | disposition home or self-care (01) ==
LOC: ED 13:42
DX: J32.9 Chronic sinusitis, unspecified (principal)

== ENCOUNTER 2023-09-13 08:36 | Emergency (ER) | payer SELFPAY ==
[~2023-09-13] VITALS: Ht 160 cm; Wt 81.6 kg
[~2023-09-13 08:36] MED LIST changes: +AVPAK AZITHROM250 M1 PO
[2023-09-13 08:46] VITALS: BP 114/71
[2023-09-13] MEDS ORDERED: ELINEST-28 TAB1 EACH PO (08:47)
[2023-09-13] MEDS ORDERED: SODIUM CHLORIDE 0.9% 1,000 ML IV ONE (09:45)
[2023-09-13] MEDS ORDERED: Ondansetron Hydrochloride 4 MG/2 ML VIAL IV ONE (09:45)
[2023-09-13 10:12] LABS: BASO % 0.3 % (0.0-1.0); EOS % 0.1 % (1.0-4.0); HEMATOCRIT 43.1 % (37.0-47.0); LYMPH # 1.3 10*3/uL (1.3-4.4); LYMPH % 9.9 % (27.0-41.0); MEAN CELL VOLUME 90.7 fl (81.0-99.0); MEAN CORPUSCULAR HGB 29.3 pg (27.0-31.0); MEAN CORPUSCULAR HGB CONC 32.3 g/dl (33.0-37.0); MEAN PLATELET VOLUME 9.8 fl (9.6-12.3); MONO # 0.3 10*3/uL (0.1-1.0); MONO % 2.3 % (3.0-9.0); NEUT # 11.6 10*3/uL (2.3-7.9); NEUT % 87.2 % (47.0-73.0); PLATELET COUNT AUTOMATED 315 10*3/uL (130-400); RED BLOOD COUNT 4.75 10*6/uL (4.10-5.10); RED CELL DISTRI WIDTH 12.5 % (0-14.5); WHITE BLOOD COUNT 13.2 10*3/uL (4.8-10.8)
[2023-09-13 10:20] LABS: BILIRUBIN Negative (Negative); BLOOD Negative (Negative); CLARITY Clear (Clear); COLOR Yellow (Yellow); GLUCOSE Negative (Negative); KETONE Negative (Negative); LEUKO ESTERASE Negative (Negative); NITRITE Negative (Negative); SPECIFIC GRAVITY 1.025 (1.001-1.030)
[2023-09-13 10:34] LABS: BACTERIA 3+; EPITHELIAL CELLS 16-20
[2023-09-13 10:50] LABS: ALKALINE PHOSPHATASE 79 U/L (46-116); BUN 9 mg/dl (9-23); CHLORIDE 109 mmol/L (98-107); LIPASE 26 U/L (12-53); POTASSIUM 3.5 mmol/L (3.4-5.1); SGPT/ALT 20 U/L (5-49); TOTAL PROTEIN 6.9 gm/dL (6.0-8.0)
[2023-09-13] MEDS ORDERED: CIPRO500 MG PO (11:27)
[2023-09-13] MEDS ORDERED: Ondansetron4 MG PO (11:27)
== END 2023-09-13 11:42 | disposition home or self-care (01) ==
LOC: ED 08:36
PROVIDERS: Internal Medicine
DX: N39.0 Urinary tract infection, site not specified (principal); A05.9 Bacterial foodborne intoxication, unspecified; R11.2 Nausea with vomiting, unspecified